=== PATIENT | female | born 1955 | race Hispanic/Latino ===

== ENCOUNTER 2018-06-10 10:09 | Emergency (ER) | payer OTHER ==
[2018-06-10 10:09] VITALS: BMI 34.0
[2018-06-10 10:24] VITALS: BP 138/90
--- NOTE | 2018-06-10 10:52 | ED PDOC ---
Arrival/HPI - General Chief Complaint: Upper Extremity Problem/Injury Time Seen by Provider: 06/10/18 10:25 Historian: Patient - History of Present Illness Narrative History of Present Illness (Text): 06/10/18 10:38 62yo female with pmhx of hypothyroid, hyperlipdemia, anxiety who present with complaint of left wrist/hand pain s/p trauma 3days ago. States she e fell down from a chair 3days ago, but didn't have pain s/p. Started having pain yesterday and it was worse over night. Past Medical History - Provider Review Nursing Documentation Reviewed: Yes - Infectious Disease Hx of Infectious Diseases: None - Tetanus Immunization Tetanus Immunization: Unknown - Reproductive Menopause: Yes - Past Medical History Past Medical History: No Previous - Cardiac Hx Pacemaker: No - Pulmonary Hx Respiratory Disorders: No - Neurological Hx Paralysis: No - HEENT Hx HEENT Disorder: No - Renal Hx Renal Disorder: No - Endocrine/Metabolic Hx Endocrine Disorders: No Hx Hypothyroidism: Yes - Hematological/Oncological Hx Blood Transfusions: No - Integumentary Hx Dermatological Disorder: No - Musculoskeletal/Rheumatological Hx Musculoskeletal Disorders: Yes - Gastrointestinal Hx Gastrointestinal Disorders: No - Genitourinary/Gynecological Hx Genitourinary Disorders: No - Psychiatric Hx Emotional Abuse: No Hx Physical Abuse: No Hx Substance Use: No - Surgical History Hx Section: Yes - Anesthesia Hx Anesthesia Reactions: Yes (OVERSEDATED X 1 ) Hx Malignant Hyperthermia: No - Suicidal Assessment Feels Threatened In Home Enviroment: No Family/Social History - Physician Review Nursing Documentation Reviewed: Yes Family/Social History: Unknown Family HX Smoking Status: Light Smoker < 10 Cigarettes Daily Hx Alcohol Use: Yes (OCCASIONAL) Frequency of alcohol use: Socially Hx Substance Use: No Allergies/Home Meds Allergies/Adverse Reactions: Allergies iodine Allergy (Severe, Verified 06/10/18 10:24) RASH Penicillins Allergy (Severe, Verified 06/10/18 10:24) RASH shellfish derived Allergy (Severe, Verified 06/10/18 10:24) RASH Home Medications: Home Meds Medication Instructions Recorded Confirmed Citalopram Hydrobromide [Celexa] 20 mg PO QPM 03/06/16 03/10/16 Levothyroxine [Synthroid] 75 mcg PO QAM 03/06/16 03/10/16 Rosuvastatin Calcium [Crestor] 10 mg PO QPM 03/06/16 03/10/16 Review of Systems - Physician Review All systems were reviewed & negative as marked: Yes - Review of Systems Constitutional: Normal Eyes: Normal ENT: Normal Respiratory: Normal Cardiovascular: Normal Gastrointestinal: Normal Genitourinary Female: Normal Musculoskeletal: Arthralgias (LEft wrist) Skin: Normal Neurological: Normal Endocrine: Normal Hemo/Lymphatic: Normal Psychiatric: Normal Physical Exam Vital Signs Reviewed: Yes Vital Signs Temp Pulse Resp BP Pulse Ox 06/10/18 10:17 98.6 F 65 16 138/90 96 Temperature: Afebrile Blood Pressure: Normal Pulse: Regular Respiratory Rate: Normal Appearance: Positive for: Well-Appearing, Non-Toxic, Comfortable Pain Distress: None Mental Status: Positive for: Alert and Oriented X 3 - Systems Exam Head: Present: Atraumatic, Normocephalic Pupils: Present: PERRL Extroacular Muscles: Present: EOMI Conjunctiva: Present: Normal Mouth: Present: Moist Mucous Membranes Neck: Present: Normal Range of Motion Respiratory/Chest: Present: Clear to Auscultation, Good Air Exchange. No: Respiratory Distress, Accessory Muscle Use Cardiovascular: Present: Regular Rate and Rhythm, Normal S1, S2. No: Murmurs Abdomen: No: Tenderness, Distention, Peritoneal Signs Back: Present: Normal Inspection Upper Extremity: Present: Normal ROM (With pain on flexion of left thumb), NORMAL PULSES, Tenderness (LEft wrist and 1st MCP), Neurovascularly Intact, Capi llary Refill < 2s. No: Cyanosis, Edema, Swelling, Erythema, Deformity Lower Extremity: Present: Normal Inspection. No: Edema Neurological: Present: GCS=15, CN II-XII Intact, Speech Normal Skin: Present: Warm, Dry, Normal Color. No: Rashes Psychiatric: Present: Alert, Oriented x 3, Normal Insight, Normal Concentration Medical Decision Making ED Course and Treatment: 06/10/18 11:40 IMPRESSION: Severe degenerative osteoarthrosis at the 1st CARE HOME joint. No acute fracture or dislocation. IMPRESSION: Severe degenerative osteoarthrosis in the 2nd, 3rd and 4th distal interphalangeal joints. Result was DW the pt and wrist brace was placed - RAD Interpretation Radiology Orders: 06/10/18 10:28 HAND LEFT 3 VIEWS ROUTINE [RAD] Stat WRIST, LEFT 3 VIEWS [RAD] Stat Disposition/Present on Arrival - Present on Arrival Any Indicators Present on Arrival: No History of DVT/PE: No History of Uncontrolled Diabetes: No Urinary Catheter: No History of Decub. Ulcer: No History Surgical Site Infection Following: None - Disposition Have Diagnosis and Disposition been Completed?: Yes Diagnosis: Wrist pain Disposition: HOME/ ROUTINE Disposition Time: 11:45 Patient Plan: Discharge Condition: STABLE Discharge Instructions (ExitCare): Wrist Sprain (DC) Additional Instructions: Follow up with your Doctor/orthopedist Return to ED for any new or worsening symptoms Referrals: Deandre Rodarte MD [Primary Care Provider] - Follow up with primary Rios Galicia DO [Staff Provider] - Follow up with primary Forms: [facility] (Serbian), WORK NOTE
--- NOTE | 2018-06-10 11:23 | RAD ---
Date of service: 06/10/2018 PROCEDURE: Left Wrist Radiographs. HISTORY: wrist pain COMPARISON: None. FINDINGS: BONES: Bone alignment and mineralization are normal. There is no acute displaced fracture or bone destruction. JOINTS: There is severe degenerative osteoarthrosis at the 1st carpometacarpal joint with severe reduced joint space, subarticular sclerosis and marginal osteophytes. The remaining joint spaces are maintained. SOFT TISSUES: Normal. OTHER FINDINGS: None. IMPRESSION: Severe degenerative osteoarthrosis at the 1st RETIREMENT joint. No acute fracture or dislocation.
--- NOTE | 2018-06-10 11:27 | RAD ---
PROCEDURE: Left Hand Radiographs. HISTORY: Pain COMPARISON: None. FINDINGS: BONES: Bone alignment is normal. There is mild periarticular bone demineralization. There is no acute displaced fracture or bone destruction. JOINTS: There is severe degenerative osteoarthrosis in the 2nd, 3rd and 4th distal interphalangeal joints with severe reduced joint spaces and marginal osteophytes. There is mild degenerative osteoarthrosis in the remaining interphalangeal joints. SOFT TISSUES: Normal. OTHER FINDINGS: None. IMPRESSION: Severe degenerative osteoarthrosis in the 2nd, 3rd and 4th distal interphalangeal joints.
[2018-06-10 11:59] VITALS: PULSE 69; RESP 18; TEMP 98.4; O2SAT 98
== END 2018-06-10 11:59 | disposition home or self-care (01) ==
LOC: ED 10:09
DX: M25.532 Pain in left wrist (principal)